=== PATIENT | female | born 1980 | race Caucasian/White ===

== ENCOUNTER → 2022-07-08 12:25 | Outpatient (CLI) | payer OTHER, SELFPAY ==
--- NOTE | ~2022-07-08 | MM_ITS ---
EXAMINATION: MM screening connie BI w radha HISTORY: Screening TECHNIQUE: Craniocaudal and mediolateral oblique 3-D tomosynthesis images were obtained and synthetic 2-D images were generated. CAD analysis was submitted and interpreted. COMPARISON: No prior mammogram is available for comparison at this institution. BREAST PARENCHYMAL COMPOSITION: The breasts are heterogeneously dense, which may obscure small masses . FINDINGS: There is no evidence of suspicious mass, calcification, or architectural distortion to sugg est malignancy in either breast. There has been no suspicious interval change. IMPRESSION: 1. No mammographic evidence of malignancy. 2. Recommend routine screening mammography in one year. BI-RADS Category 1: Negative Reviewed, dictated and finalized at [facility]
== END ==
PROVIDERS: PCP Obstetrics & Gynecology Gynecology; Visit Provider Obstetrics & Gynecology Gynecology
DX: Z12.31 Encounter for screening mammogram for malignant neoplasm of breast (principal)
CPT/HCPCS: 77063; 77067

== ENCOUNTER 2023-04-07 08:26 | Outpatient (CLI) | payer OTHER, SELFPAY ==
--- NOTE | ~2023-04-07 | US_ITS ---
Pelvic ultrasound. Clinical History: Adnexal mass Technique: Realtime transabdominal scanning of the pelvis was performed. Color flow Doppler and Doppl er spectral analysis were performed. Findings: The uterus is anteverted, and measures 7.6 x 4.2 x 5.1 cm. The endometrial stripe has a th ickness of 5 mm. Probable right-sided uterine fibroid measures 5.1 cm. The right ovary measures 2.5 x 1.7 x 2.3 cm. No significant right ovarian or adnexal mass is seen. The left ovary measures 2.5 x 1.7 x 2.1 cm. No significant left ovarian or adnexal mass is seen. Vascular flow present in both ovaries. There is no evidence of free fluid in the cul de sac. Impression: Probable 5.1 cm right-sided uterine fibroid. Reviewed, dictated and finalized at [facility]. [employer] Impression: Probable 5.1 cm right-sided uterine fibroid.
== END 2023-04-07 08:27 ==
LOC: MICIMG 08:27
PROVIDERS: PCP Obstetrics & Gynecology Gynecology; Visit Provider Obstetrics & Gynecology Gynecology
DX: R19.09 Other intra-abdominal and pelvic swelling, mass and lump (principal)
CPT/HCPCS: 76856

== ENCOUNTER 2023-06-07 09:55 | Emergency (ER) | payer OTHER, SELFPAY ==
[2023-06-07 10:12] VITALS: BP 122/71; PULSE 82; RESP 18; TEMP 36.7; O2SAT 98
--- NOTE | 2023-06-07 10:28 | ED.DENTAL ---
HPI - Dental/Oral General Chief complaint: Dental/Oral Stated complaint: tooth prob Time Seen by Provider: 06/07/23 10:20 Source: patient Mode of arrival: ambulatory Limitations: no limitations History of Present Illness HPI Narrative: 43 year old female who presents to [facility] care with complaints of upper left most posterior tooth pain with redness and pain of gum around tooth with swelling to the left side of her face for the past 2 days. Patient reports that she lost a cap off of that affected tooth about 2 weeks ago but initially didn't have pain. Patient reports that she doesn't presently have a dentist but has dental insurance and will need to get appointment with new dentist. Patient denies any difficulty with her breathing or with swallowing. MD Complaint: tooth pain Location: Tooth # (15) Onset (ago): day(s) (2) Severity: moderate Severity scale (1-10): 8 Treatment prior to arrival: oral analgesic and other (ice to left side of face) Related Data Home Medications Medication Instructions Recorded Confirmed estradiol-norethindrone acet 0.5 See Rx Instructions .Route .COMPLEX 06/07/23 06/07/23 mg-0.1 mg tablet fluoxetine 40 mg capsule 40 mg PO DAILY 06/07/23 06/07/23 Allergies Allergy/AdvReac Type Severity Reaction Status Date / Time No Known Allergies Allergy Unverified 06/07/23 10:04 Review of Systems Review of Systems: CONSTITUTIONAL: Denies fever, chills, or sweats. ENT: Denies rhinorrhea, congestion, sore throat, or otalgia. Reports dental pain to #15 tooth cap or crown lost 2 weeks ago with redness and swelling around tooth left sided facial swelling. CARDIOVASCULAR: Denies chest pain, palpitations, or edema. RESPIRATORY: Denies cough or dyspnea. SKIN: Denies rash or itching. MUSCULOSKELETAL: Denies myalgia. NEUROLOGIC: Denies headache All systems reviewed & are unremarkable except as noted in HPI and below PMFSH Past Medical History Medical History (Updated 06/07/23 @ 16:21 by Geneva Costa NP) Anxiety Fracture of right ulna Surgical History Surgical History (Updated 06/07/23 @ 16:16 by Geneva Costa NP) History of removal of skin mole Family History Family History (Updated 06/07/23 @ 16:07 by Geneva Costa NP) Grandparent Alzheimers disease Cancer Social History Social History (Updated 06/07/23 @ 16:06 by Geneva Costa NP) Smoking packs per day: 0.25 Smoking cigarettes per day: 5.0 Years smoked: 16 Smoking pack-years: 4.00 Smoking status: Current every day smoker Tobacco type: cigarettes Alcohol intake: current Alcohol use details: social Substance use type: does not use Living arrangements: with family Gender identity (if verbalized by the patient): Female Comments At time of signature, agree with nursing past medical, surgical, social and family history. There is no relevant family history pertinent to the presenting complaint Exam Narrative: GENERAL: Well-appearing, well-nourished, and in no acute distress. HEAD: Normocephalic, atraumatic. EYES: PERRLA and EOMI. ENT: Nares clear, no rhinorrhea or epistaxis. Mucous membranes moist. Patient has lost crown cap off of #15 tooth, some redness and swelling around tooth with swelling of left cheek. NECK: Supple. no lymphadenopathy CHEST: Clear to auscultation. No respiratory distress. HEART: Regular rate and rhythm. No murmur heard. Normal peripheral pulses. SKIN: Warm, dry, no rash. NEURO: No focal deficits. Alert and oriented x3. Course Course Emergency Course: Patient is aware of diagnosis, understands and agrees to treatment plan. Anticipatory guidance given. Patient agrees to follow-up as directed and is aware of reasons to seek care at the emergency department. Portions of this record may have been created with voice recognition software Level of Care: Express Care Visit Vital Signs Vital signs: Vital Signs Temperature 36.7 C 06/07/23 10:12 Pulse R
== END 2023-06-07 10:35 | disposition home or self-care (01) ==
PROVIDERS: Emergency Provider Registered Nurse; PCP Obstetrics & Gynecology Gynecology
DX: K04.7 Periapical abscess without sinus (principal); K08.89 Other specified disorders of teeth and supporting structures; F17.210 Nicotine dependence, cigarettes, uncomplicated; F41.9 Anxiety disorder, unspecified
CPT/HCPCS: 99213; G0463